=== PATIENT | male | born 1955 | race Caucasian/White ===

== ENCOUNTER 2017-09-05 06:27 | Day surgery (SDC) | payer BC ==
[2017-09-05] MEDS ORDERED: Dextrose 5%-Lactated Ringers 1,000 ML IV SCH (07:00)
[2017-09-05] MEDS ORDERED: fentaNYL 100 MCG/2 ML SDV ONE (07:11)
[2017-09-05] MEDS ORDERED: Midazolam 1 MG/ML 2 ML SDV ONE (07:11)
[2017-09-05] MEDS ORDERED: Propofol 200 MG/20 ML SDV ONE (07:11)
[2017-09-05] MEDS ORDERED: Glycopyrrolate 0.2 MG/ML 2 ML SYRINGE IVPUSH ONE (07:30)
[2017-09-05] MEDS ORDERED: Ondansetron 4 MG/2 ML SDV IVPUSH ONE (09:26)
[2017-09-05 09:56] VITALS: BP 109/75
--- NOTE | 2017-09-11 08:16 | OR ---
DATE OF PROCEDURE: 09/05/2017 PREOPERATIVE DIAGNOSIS: History of Wong's esophagus. POSTOPERATIVE DIAGNOSES: 1. History of Wong's esophagus. 2. Mild antral gastritis. PROCEDURES: Esophagogastroduodenoscopy with: 1. Antral biopsies for CLOtest. 2. Biopsies of esophagogastric junction for histologic evaluation. INDICATION FOR PROCEDURE: This is a 62-year-old presenting for followup of his Wong's esophagus. Presently, he is on omeprazole 20 mg a day, and he has had little in the way of ongoing reflux symptoms. The plan is to proceed with an upper GI endoscopy with biopsies as indicated. Potential risks including bleeding and perforation were discussed, and the patient wishes to proceed. DESCRIPTION OF PROCEDURE: The patient was taken to the operating room and placed in a left lateral decubitus position. IV sedation was administered, after which the upper GI endoscope was passed orally through the length of esophagus and into the stomach with retroflexion view of the fundus and thereafter through the pyloric channel and into the junction of the third and fourth portions of the duodenum. Findings included normal hypopharynx, larynx, upper esophageal sphincter, along with the esophageal body. As one passed into the area of the esophagogastric junction, the patient did have some upward extension of the gastroesophageal junction lying above the upper gastric folds. This was associated with minimal gross inflammation and no plaquing or other signs of neoplasia. There was no stricturing at the EG junction as well. Within the stomach proximally, there was a small amount of bile present. There were some patchy jose areas in the antrum without erosions or ulcers, and the visualized portion of the pyloric channel and duodenum were unremarkable. At this point, biopsies were taken from the antrum and sent for CLOtest for H. pylori. Multiple biopsies were then obtained from esophagogastric junction and sent for histologic evaluation. No bleeding from biopsy sites was seen, and the procedure was then concluded. The patient will encouraged to continue the present omeprazole management. Assuming there is not a progression toward dysplasia within the Wong's esophagus, the next upper endoscopy should be in 2 years. Lamin Fernandes MD /[id number]
== END 2017-09-05 11:05 | disposition home or self-care (01) ==
LOC: JP.SDS 06:27
PROVIDERS: ATTEND Surgery
DX: K29.50 Unspecified chronic gastritis without bleeding (principal); K21.0 Gastro-esophageal reflux disease with esophagitis; I10 Essential (primary) hypertension; N40.0 Benign prostatic hyperplasia without lower urinary tract symptoms; R73.03 Prediabetes
CPT/HCPCS: 43239; 87081; 88305; J2250; J2405; J2704; J3010; J7042

== ENCOUNTER 2020-10-04 17:28 | Inpatient (IN) | payer BC ==
[2020-10-04] MEDS ORDERED: Sodium Chloride 0.9% 10 ML Syringe FLUSH PRN (17:32)
--- NOTE | 2020-10-04 17:39 | PCM.HP.2 ---
H&P History of Present Illness - General Date of Service: 10/04/20 Admit Problem/Dx: Admission Diagnosis/Problem Admission Diagnosis/Problem Small bowel obstruction Source of Information: Patient, Family, Provider, RN Notes Reviewed History Limitations: Reports: No Limitations - History of Present Illness Initial Comments - Free Text/Narative: Mr. Cotton is a 65-year-old gentleman who was admitted as a direct admission from the clinic with abdominal pain, nausea, and vomiting, secondary to small bowel obstruction. Over the last 2 days is developed progressive symptoms of abdominal pain, with nausea and vomiting. He has not been passing gas or had a bowel movements since onset of symptoms. He was seen and evaluated in the walk- in clinic today. Labs were essentially unremarkable, abdominal x-ray showed bowel gas pattern consistent with bowel obstruction. CT scan of the abdomen and pelvis was obtained and again confirmed small bowel obstruction with transition point in the pelvis. He has had previous abdominal surgery including cholecystectomy. He has never previously experienced small bowel obstruction and otherwise has been feeling well. - Related Data Allergies/Adverse Reactions: Allergies Allergy/AdvReac Type Severity Reaction Status Date / Time No Known Allergies Allergy Verified 04/18/15 09:27 Home Medications: Home Meds Aspirin 325 mg PO DAILY 04/21/14 [History] Celecoxib [CeleBREX] 100 mg PO BID 04/21/14 [History] Fluticasone Propionate [Flonase] 1 spray NASBOTH DAILY 04/21/14 [History] Sildenafil [Viagra] 50 mg PO ASDIRECTED PRN 04/21/14 [History] Tamsulosin [Flomax] 0.8 mg PO DAILY 04/21/14 [History] amLODIPine [Norvasc] 10 mg PO DAILY 04/21/14 [History] atorvaSTATin [Lipitor] 40 mg PO BEDTIME 04/21/14 [History] hydroCHLOROthiazide [Microzide] 12.5 mg PO DAILY 04/21/14 [History] Cholecalciferol (Vitamin D3) [Vitamin D] 2,000 unit PO DAILY 04/14/15 [History] Omeprazole [Prilosec] 40 mg PO DAILY 04/14/15 [History] atenoloL [Atenolol] 50 mg PO BID 10/04/20 [History] Past Medical History Other HEENT History: right eye injury with floaters Gastrointestinal History: Reports: GERD Genitourinary History: Reports: BPH - Infectious Disease History Infectious Disease History: Reports: Chicken Pox Social & Family History - Caffeine Use Caffeine Use: Reports: Coffee H&P Review of Systems - Review of Systems: Review Of Systems: See Below General: Reports: Malaise, Weakness, Decreased Appetite. Denies: Fever, Chills HEENT: Reports: No Symptoms Pulmonary: Reports: No Symptoms Cardiovascular: Reports: No Symptoms Gastrointestinal: Reports: Abdominal Pain, Distension, Nausea, Vomiting. Denies: Difficulty Swallowing, Hematemesis, Hematochezia, Melena Genitourinary: Reports: No Symptoms Musculoskeletal: Reports: No Symptoms Skin: Reports: No Symptoms Psychiatric: Reports: No Symptoms Neurological: Reports: No Symptoms Hematologic/Lymphatic: Reports: No Symptoms Immunologic: Reports: No Symptoms Exam - Exam Exam: See Below - Exam Quality Assessment: DVT Prophylaxis General: Alert, Oriented, Cooperative, Moderate Distress HEENT: Conjunctiva Clear, Hearing Intact, Mucosa Moist & [place], Normal Nasal Septum, Posterior Pharynx Clear, Pupils Equal Neck: Supple, Trachea Midline, +2 Carotid Pulse wo Bruit Lungs: Clear to Auscultation, Normal Respiratory Effort Cardiovascular: Regular Rate, Regular Rhythm, Normal S1, Normal S2 GI/Abdominal Exam: Soft, No Organomegaly, Distended, Tender. No: Guarding, Rigid, Rebound Back Exam: Normal Inspection, Full Range of Motion Extremities: Non-Tender, No Pedal Edema Skin: Warm, Dry, Intact Neurological: Cranial Nerves Intact, Strength Equal Bilateral, Normal Speech, Normal Tone, Sensation Intact. No: Focal Deficit Neuro Extensive - Mental Status: Alert, Oriented x3, Normal Mood/Affect, Normal Cognition, Memory Intact *Q Meaningful Use (ADM) - VTE Risk Assess *Q Each Risk Factor Represents 1 Point: Obesity ( BMI > 25 kg/m2) Total Score 1 Point Risk Factors: 1 Each Risk Factor Represents 2 Points: Age 60 - 74 Years Total Score 2 Point Risk Factors: 2 Each Risk Factor Represents 3 Points: None Total Score 3 Point Risk Factors: 0 Each Risk Factor Represents 5 Points: None Total Score 5 Point Risk Factors: 0 Venous Thromboembolism Risk Factor Score *Q: 3 Problem List Initiated/Reviewed/Updated: Yes Orders Last 24hrs: Active Orders 24 hr Category Date Time Status Patient Status [ADT] Routine ADT 10/04/20 17:32 Ordered Ambulate [RC] QID Care 10/04/20 17:32 Ordered Antiembolic Devices [RC] .Routine Care 10/04/20 17:32 Ordered Gastrointestinal Tube Mgmt [RC] ASDIRECTED Care 10/04/20 17:37 Ordered Height and Weight [RC] DAILY Care 10/04/20 17:32 Ordered Intake and Output [RC] QSHIFT Care 10/04/20 17:32 Ordered Notify Provider Consults [RC] ASDIRECTED Care 10/04/20 17:34 Ordered Notify Provider Vital Signs [RC] ASDIRECTED Care 10/04/20 17:32 Ordered Oxygen Therapy [RC] PRN Care 10/04/20 17:32 Ordered Peripheral IV Care [RC] . DIRECTED Care 10/04/20 17:34 Ordered Up ad Precious [RC] ASDIRECTED Care 10/04/20 17:32 Ordered Up to Chair [RC] QID Care 10/04/20 17:32 Ordered VTE/DVT Education [RC] Per Unit Routine Care 10/04/20 17:32 Ordered Vital Signs [RC] Q4H Care 10/04/20 17:32 Ordered Consult to Physician [CONS] Routine Cons 10/04/20 17:32 Ordered Nothing per Oral Now Diet [DIET] Diet 10/04/20 Dinner Ordered Abdomen 1V Upright [CR] Stat Exams 10/04/20 17:37 Ordered Abdomen 2V AP Upright Decub [CR] Timed Exams 10/05/20 05:00 Ordered Chest 1V Frontal [CR] Stat Exams 10/04/20 17:37 Ordered CBC WITH AUTO DIFF [HEME] AM Lab 10/05/20 05:11 Ordered COMPREHENSIVE METABOLIC PN,CMP [CHEM] AM Lab 10/05/20 05:11 Ordered MAGNESIUM [CHEM] AM Lab 10/05/20 05:11 Ordered HYDROmorphone [Dilaudid] Med 10/04/20 17:37 Ordered 0.5 mg IVPUSH Q3H PRN Ondansetron [Zofran] Med 10/04/20 17:32 Ordered 4 mg IV Q4H PRN Pantoprazole [ProTONIX IV] Med 10/04/20 17:45 Ordered 40 mg IVPUSH Q24H Sodium Chloride 0.9% @ 125 MLS/HR (1000ml) Med 10/04/20 17:45 Ordered Sodium Chloride 0.9% [Normal Saline] 1,000 ml IV ASDIRECTED Sodium Chloride 0.9% [Saline Flush] Med 10/04/20 17:32 Ordered 10 ml FLUSH ASDIRECTED PRN Nasogastric Orogastric Tube Insertion [OM.PC] Routine Oth 10/04/20 17:37 Ordered Peripheral IV Insertion Adult [OM.PC] Routine Oth 10/04/20 17:32 Ordered Sequential Compression Device [OM.PC] Per Unit Routine Oth 10/04/20 17:33 Ordered Resuscitation Status Routine Resus Stat 10/04/20 17:32 Ordered Assessment/Plan Comment:: ASSESSMENT AND PLAN SMALL BOWEL OBSTRUCTION-symptoms of pain with nausea and vomiting over the last 2 days. During that period of time has not been passing gas or had a bowel movement. CT scan confirms small bowel obstruction with transition point in the pelvis. -Follow-up abdominal flatplate and upright x-ray in a.m. -N.p.o. -Place NG tube to low intermittent suction -IV fluids for hydration -Medication for pain and nausea as needed -Consult Dr. Fernandes for surgical opinion in a.m. HYPERTENSION -Continue metoprolol if possible -Hold amlodipine, lisinopril, and hydrochlorothiazide MAINTENANCE ISSUES -DVT prophylaxis; SCUDs -GI prophylaxis; Protonix 40 mg IV daily -Correa catheter; not indicated -Nutrition; n.p.o. -Nicotine dependence; not required CODE STATUS-FULL CODE ADMISSION STATUS-patient will be admitted to inpatient status, expect at least a 2 night hospital stay for evaluation and management of problems as outlined above. At the time of this admission I do not reasonably expected evaluation and management of this problem will require more than a 96 hour hospital stay. DISPOSITION-anticipate discharge to home after the hospital stay.
[2020-10-04] MEDS ORDERED: Sodium Chloride 0.9% 1,000 ML IV SCH (17:45)
[2020-10-04] MEDS: Pantoprazole 40 MG Vial IVPUSH SCH (18:46)
[2020-10-04] MEDS: HYDROmorphone 0.5 MG/0.5 ML Syringe IVPUSH PRN (20:13)
[2020-10-04] MEDS: Ondansetron 4 MG/2 ML SDV IV PRN (20:23)
[2020-10-04] MEDS: atorvaSTATin 20 MG Tab PO SCH (22:09)
[2020-10-05] MEDS: HYDROmorphone 0.5 MG/0.5 ML Syringe IVPUSH PRN ×2 (03:00→20:06)
--- NOTE | 2020-10-05 08:09 | PCM.CONS ---
H&P History of Present Illness - General Date of Service: 10/05/20 Admit Problem/Dx: Admission Diagnosis/Problem Admission Diagnosis/Problem Small bowel obstruction Source of Information: Patient History Limitations: Reports: No Limitations - History of Present Illness Onset of Symptoms: Reports: Gradual Duration of Symptoms: Reports: Day(s): Location: Reports: Abdomen Quality: Reports: Ache, Pressure, Stabbing, Throbbing Improves with: Reports: None Worsens with: Reports: Eating Context: Reports: Sick Contact Associated Symptoms: Reports: Loss of Appetite, Malaise, Nausea/Vomiting - Related Data Allergies/Adverse Reactions: Allergies Allergy/AdvReac Type Severity Reaction Status Date / Time No Known Allergies Allergy Verified 04/18/15 09:27 Home Medications: Home Meds Aspirin 325 mg PO DAILY 04/21/14 [History] Celecoxib [CeleBREX] 100 mg PO BID 04/21/14 [History] Fluticasone Propionate [Flonase] 1 spray NASBOTH DAILY 04/21/14 [History] Sildenafil [Viagra] 50 mg PO ASDIRECTED PRN 04/21/14 [History] Tamsulosin [Flomax] 0.8 mg PO DAILY 04/21/14 [History] amLODIPine [Norvasc] 10 mg PO DAILY 04/21/14 [History] atorvaSTATin [Lipitor] 40 mg PO BEDTIME 04/21/14 [History] hydroCHLOROthiazide [Microzide] 12.5 mg PO DAILY 04/21/14 [History] Cholecalciferol (Vitamin D3) [Vitamin D] 2,000 unit PO DAILY 04/14/15 [History] Omeprazole [Prilosec] 40 mg PO DAILY 04/14/15 [History] atenoloL [Atenolol] 50 mg PO BID 10/04/20 [History] Past Medical History Other HEENT History: right eye injury with floaters Cardiovascular History: Reports: Hypertension Gastrointestinal History: Reports: Bowel Obstruction, GERD Genitourinary History: Reports: BPH Musculoskeletal History: Reports: Fracture - Infectious Disease History Infectious Disease History: Reports: Chicken Pox - Past Surgical History HEENT Surgical History: Reports: None Cardiovascular Surgical History: Reports: None GI Surgical History: Reports: Cholecystectomy Male Surgical History: Reports: None Musculoskeletal Surgical History: Reports: ORIF Other Musculoskeletal Surgeries/Procedures:: surgery on ankles Social & Family History - Tobacco Use Tobacco Use Status *Q: Never Tobacco User Used Tobacco, but Quit: No Second Hand Smoke Exposure: No - Caffeine Use Caffeine Use: Reports: Coffee - Alcohol Use Days Per Week of Alcohol Use: 7 Number of Drinks Per Day: 2 Total Drinks Per Week: 14 - Recreational Drug Use Recreational Drug Use: No H&P Review of Systems - Review of Systems: Review Of Systems: See Below General: Reports: Weakness, Fatigue HEENT: Reports: No Symptoms Pulmonary: Reports: No Symptoms Cardiovascular: Reports: No Symptoms Gastrointestinal: Reports: Abdominal Pain, Decreased Appetite, Distension, Nausea, Other (History of Colon Polyps and Gloria's Esophagus. ) Genitourinary: Reports: No Symptoms Musculoskeletal: Reports: No Symptoms Skin: Reports: No Symptoms Psychiatric: Reports: No Symptoms Neurological: Reports: No Symptoms Hematologic/Lymphatic: Reports: No Symptoms Immunologic: Reports: No Symptoms Exam - Exam Exam: See Below - Vital Signs Vital Signs: Last Vital Signs Temp 98 F 10/05/20 07:00 Pulse 96 10/05/20 07:00 Resp 16 10/05/20 07:00 BP 133/77 10/05/20 07:00 Pulse Ox 94 L 10/05/20 07:00 Weight: 167 lb 8.821 oz - Exam Quality Assessment: DVT Prophylaxis General: Alert, Oriented, Moderate Distress HEENT: PERRLA Neck: Supple, Trachea Midline Lungs: Clear to Auscultation, Normal Respiratory Effort Cardiovascular: Regular Rate, Regular Rhythm GI/Abdominal Exam: Soft, Tender (in bilateral lower quadrants. NG is in place ) (Male) Exam: Deferred Rectal (Males) Exam: Deferred Back Exam: Normal Inspection, Full Range of Motion Extremities: Normal Inspection, Normal Range of Motion Skin: Warm, Dry, Intact Neurological: Cranial Nerves Intact, Reflexes Equal Bilateral Neuro Extensive - Mental Status: Alert, Oriented x3, Normal Mood/Affect, Normal Cognition, Memory Intact Neuro Extensive - Motor, Sensory, Reflexes: CN II-XII Intact, Normal Gait Psychiatric: Alert, Normal Affect, Normal Mood - Patient Data Lab Results Last 24 hrs: Laboratory Results - last 24 hr 10/05/20 10/05/20 Range/Units 05:48 05:48 WBC 5.5 (4.5-11.0) K/uL RBC 4.52 (4.30-5.90) M/uL Hgb 14.0 (12.0-15.0) g/dL Hct 43.6 (40.0-54.0) % MCV 97 (80-98) fL MCH 31 (27-31) pg MCHC 32 (32-36) % Plt Count 198 (150-400) K/uL Neut % (Auto) 52 (36-66) % Lymph % (Auto) 20 L (24-44) % [place] % (Auto) 27 H (2-6) % Eos % (Auto) 1 L (2-4) % Baso % (Auto) 0 (0-1) % Sodium 143 (140-148) mmol/L Potassium 3.3 L (3.6-5.2) mmol/L Chloride 104 (100-108) mmol/L Carbon Dioxide 24 (21-32) mmol/L Anion Gap 18.3 H (5.0-14.0) mmol/L BUN 12 (7-18) mg/dL Creatinine 0.8 (0.8-1.3) mg/dL Est Cr Clr Drug Dosing 85.29 mL/min Estimated GFR (MDRD) > 60 (>60) Glucose 90 (74-106) mg/dL Calcium 8.5 (8.5-10.1) mg/dL Magnesium 2.0 (1.8-2.4) mg/dL Total Bilirubin 0.6 (0.2-1.0) mg/dL AST 16 (15-37) U/L ALT 49 (12-78) U/L Alkaline Phosphatase 64 (46-116) U/L Total Protein 6.3 L (6.4-8.2) g/dL Albumin 3.2 L (3.4-5.0) g/dL Globulin 3.1 (2.3-3.5) g/dL Albumin/Globulin Ratio 1.0 L (1.2-2.2) Result Diagrams: 10/05/20 05:48 10/05/20 05:48 Sepsis Event Note - Evaluation Sepsis Screening Result: No Definite Risk - Focused Exam Vital Signs: Vital Signs Temp Pulse Resp BP Pulse Ox 10/05/20 07:00 98 F 96 16 133/77 94 L 10/05/20 03:00 99.4 F 73 16 149/76 H 94 L 10/04/20 22:29 99.3 F 89 16 140/77 94 L Consult PN Assessment/Plan Procedures: Procedures CARDIOVASCULAR STRESS TEST (04/22/14) CULTURE SCREEN ONLY (09/05/17) DIAGNOSTIC COLONOSCOPY (04/18/15) EGD BIOPSY SINGLE/MULTIPLE (09/05/17) TISSUE EXAM BY PATHOLOGIST (09/05/17) (1) Small bowel obstruction SNOMED Code(s): 257647018 Code(s): K56.609 - UNSP INTESTNL OBST, UNSP TO PARTIAL VERSUS COMPLETE OBST Current Visit: Yes (2) Diverticulitis SNOMED Code(s): 859723337 Code(s): K57.92 - DVTRCLI OF INTEST, PART UNSP, W/O PERF OR ABSCESS W/O BLEED Current Visit: Yes (3) Barretts esophagus SNOMED Code(s): 962883488 Code(s): K22.70 - GLORIA'S ESOPHAGUS WITHOUT DYSPLASIA Current Visit: Yes Problem List Initiated/Reviewed/Updated: Yes My Orders Last 24 Hours: My Active Orders Plan: 10/05/20 09:00 amLODIPine [Norvasc] 10 mg PO DAILY atenoloL [Tenormin] 50 mg PO BID hydroCHLOROthiazide 12.5 mg PO DAILY 10/06/20 04:00 Abdomen 2V AP Flat Upright [CR] Timed Will evaluate prn or in AM. Evan is due for an EGD to evaluate Gloria's Esophagus and Colonoscopy is due in 4 years or prn Thank You for this Consultation. Monika Clark 10/05/2020
[2020-10-05] MEDS ORDERED: Potassium Chloride Riders 40 MEQ in Premix Bag 1 BAG IV ONE (08:19)
[2020-10-05] MEDS: Hydrochlorothiazide 12.5 MG Cap PO SCH (08:36)
[2020-10-05] MEDS: Atenolol 25 MG Tab PO SCH ×2 (08:37→20:07)
[2020-10-05] MEDS: amLODIPine 5 MG Tab PO SCH (08:37)
[2020-10-05] MEDS: Tamsulosin 0.4 MG Cap.ER PO SCH (08:37)
[2020-10-05] MEDS: Fluticasone Propionate Nasal Spray 16 GM Bottle NASBOTH SCH (08:38)
--- NOTE | 2020-10-05 09:01 | CR ---
CHEST: Portable 10/04/2020 at 7:03 PM CLINICAL HISTORY:NG tube placement COMPARISON:None FINDINGS: Heart size and pulmonary vascular are normal. There is less than optimal inspiration exaggerating the lung markings. There is an NG tube in the fundus of the stomach. The sidehole is just beyond the GE junction. IMPRESSION: Limited study with poor inspiration NG tube is in the fundus of the stomach and should be advanced Abdomen 2V AP Upright Decub CLINICAL HISTORY: SBO FINDINGS: No free air is seen. There is an NG tube in the fundus of the stomach. There is moderate diffuse distention of small bowel with scattered air-fluid levels. There is gas throughout the colon. Previously administered oral contrast is also seen in the colon. IMPRESSION: Small bowel distention with passage of contrast through the small bowel suggests partial obstruction
--- NOTE | 2020-10-05 10:36 | PCM.PN ---
- General Info Date of Service: 10/05/20 Subjective Update: Mr. Cotton has been stable since admission. Abdominal pain and nausea improved with placement of NG tube. He reports that he has been passing a small amount of gas and did have a small bowel movement this morning. He was seen and evaluated by Dr. Fernandes, current plan is to manage conservatively over the next 24 hours. If there is resolution of obstruction by tomorrow continue conservative management, if he has ongoing obstruction plan to proceed with surgical intervention. Functional Status: Reports: Ambulating, Urinating - Review of Systems General: Reports: No Symptoms Pulmonary: Reports: No Symptoms Cardiovascular: Reports: No Symptoms Gastrointestinal: Reports: No Symptoms - Patient Data Vitals - Most Recent: Last Vital Signs Temp 98 F 10/05/20 07:00 Pulse 96 10/05/20 08:37 Resp 16 10/05/20 07:00 BP 133/77 10/05/20 08:37 Pulse Ox 94 L 10/05/20 07:00 Weight - Most Recent: 167 lb 8.821 oz I&O - Last 24 Hours: Intake & Output 10/04/20 10/05/20 10/05/20 22:59 06:59 14:59 Output Total 350 Balance -350 Lab Results Last 24 Hours: Laboratory Results - last 24 hr 10/05/20 10/05/20 Range/Units 05:48 05:48 WBC 5.5 (4.5-11.0) K/uL RBC 4.52 (4.30-5.90) M/uL Hgb 14.0 (12.0-15.0) g/dL Hct 43.6 (40.0-54.0) % MCV 97 (80-98) fL MCH 31 (27-31) pg MCHC 32 (32-36) % Plt Count 198 (150-400) K/uL Neut % (Auto) 52 (36-66) % Lymph % (Auto) 20 L (24-44) % [place] % (Auto) 27 H (2-6) % Eos % (Auto) 1 L (2-4) % Baso % (Auto) 0 (0-1) % Sodium 143 (140-148) mmol/L Potassium 3.3 L (3.6-5.2) mmol/L Chloride 104 (100-108) mmol/L Carbon Dioxide 24 (21-32) mmol/L Anion Gap 18.3 H (5.0-14.0) mmol/L BUN 12 (7-18) mg/dL Creatinine 0.8 (0.8-1.3) mg/dL Est Cr Clr Drug Dosing 85.29 mL/min Estimated GFR (MDRD) > 60 (>60) Glucose 90 (74-106) mg/dL Calcium 8.5 (8.5-10.1) mg/dL Magnesium 2.0 (1.8-2.4) mg/dL Total Bilirubin 0.6 (0.2-1.0) mg/dL AST 16 (15-37) U/L ALT 49 (12-78) U/L Alkaline Phosphatase 64 (46-116) U/L Total Protein 6.3 L (6.4-8.2) g/dL Albumin 3.2 L (3.4-5.0) g/dL Globulin 3.1 (2.3-3.5) g/dL Albumin/Globulin Ratio 1.0 L (1.2-2.2) Med Orders - Current: Current Medications Amlodipine Besylate (Amlodipine 5 Mg Tab) 10 mg PO DAILY [facility] Last Admin: 10/05/20 08:37 Dose: 10 mg Documented by: Atenolol (Atenolol 25 Mg Tab) 50 mg PO BID [facility] Last Admin: 10/05/20 08:37 Dose: 50 mg Documented by: Atorvastatin Calcium (Atorvastatin 20 Mg Tab) 40 mg PO BEDTIME [facility] Last Admin: 10/04/20 22:09 Dose: Not Given Documented by: Fluticasone Propionate (Fluticasone Propionate Nasal [place] 16 Gm Bottle) 0 gm NASBOTH DAILY [facility] Last Admin: 10/05/20 08:38 Dose: 1 spr Documented by: Hydrochlorothiazide (Hydrochlorothiazide 12.5 Mg Cap) 12.5 mg PO DAILY [facility] Last Admin: 10/05/20 08:36 Dose: 12.5 mg Documented by: Hydromorphone HCl (Hydromorphone 0.5 Mg/0.5 Ml Syringe) 0.5 mg IVPUSH Q3H PRN PRN Reason: Pain Last Admin: 10/05/20 03:00 Dose: 0.5 mg Documented by: Potassium Chloride 20 meq/Lidocaine HCl 2 ml/ Sodium Chloride 112 mls @ 56 mls/hr IV Q2H [facility] Stop: 10/05/20 13:59 Sodium Chloride (Normal Saline) 1,000 mls @ 75 mls/hr IV ASDIRECTED [facility] Ondansetron HCl (Ondansetron 4 Mg/2 Ml Sdv) 4 mg IV Q4H PRN PRN Reason: Nausea/Vomiting Last Admin: 10/04/20 20:23 Dose: 4 mg Documented by: Pantoprazole Sodium (Pantoprazole 40 Mg Vial) 40 mg IVPUSH Q24H [facility] Last Admin: 10/04/20 18:46 Dose: 40 mg Documented by: Sodium Chloride (Sodium Chloride 0.9% 10 Ml Syringe) 10 ml FLUSH ASDIRECTED PRN PRN Reason: Keep Vein Open Tamsulosin HCl (Tamsulosin 0.4 Mg Cap.Er) 0.8 mg PO DAILY [facility] Last Admin: 10/05/20 08:37 Dose: 0.8 mg Documented by: Discontinued Medications Sodium Chloride (Normal Saline) 1,000 mls @ 125 mls/hr IV ASDIRECTED [facility] Last Admin: 10/04/20 18:46 Dose: 125 mls/hr Documented by: - Exam Quality Assessment: DVT Prophylaxis General: Alert, Oriented, Cooperative, Mild Distress Lungs: Clear to Auscultation, Normal Respiratory Effort Cardiovascular: Regular Rate, Regular Rhythm, No Murmurs GI/Abdominal Exam: Soft, No Organomegaly, Distended, Tender. No: Guarding, Rigid, Rebound Extremities: Non-Tender, No Pedal Edema - Patient Data Lab Results Last 24 hrs: Laboratory Results - last 24 hr 10/05/20 10/05/20 Range/Units 05:48 05:48 WBC 5.5 (4.5-11.0) K/uL RBC 4.52 (4.30-5.90) M/uL Hgb 14.0 (12.0-15.0) g/dL Hct 43.6 (40.0-54.0) % MCV 97 (80-98) fL MCH 31 (27-31) pg MCHC 32 (32-36) % Plt Count 198 (150-400) K/uL Neut % (Auto) 52 (36-66) % Lymph % (Auto) 20 L (24-44) % [place] % (Auto) 27 H (2-6) % Eos % (Auto) 1 L (2-4) % Baso % (Auto) 0 (0-1) % Sodium 143 (140-148) mmol/L Potassium 3.3 L (3.6-5.2) mmol/L Chloride 104 (100-108) mmol/L Carbon Dioxide 24 (21-32) mmol/L Anion Gap 18.3 H (5.0-14.0) mmol/L BUN 12 (7-18) mg/dL Creatinine 0.8 (0.8-1.3) mg/dL Est Cr Clr Drug Dosing 85.29 mL/min Estimated GFR (MDRD) > 60 (>60) Glucose 90 (74-106) mg/dL Calcium 8.5 (8.5-10.1) mg/dL Magnesium 2.0 (1.8-2.4) mg/dL Total Bilirubin 0.6 (0.2-1.0) mg/dL AST 16 (15-37) U/L ALT 49 (12-78) U/L Alkaline Phosphatase 64 (46-116) U/L Total Protein 6.3 L (6.4-8.2) g/dL Albumin 3.2 L (3.4-5.0) g/dL Globulin 3.1 (2.3-3.5) g/dL Albumin/Globulin Ratio 1.0 L (1.2-2.2) Result Diagrams: 10/05/20 05:48 10/05/20 05:48 Sepsis Event Note - Evaluation Sepsis Screening Result: No Definite Risk - Focused Exam Vital Signs: Vital Signs Temp Pulse Pulse Resp BP BP Pulse Ox 10/05/20 08:37 96 133/77 10/05/20 07:00 98 F 96 16 133/77 94 L 10/05/20 03:00 99.4 F 73 16 149/76 H 94 L - Problem List Review Problem List Initiated/Reviewed/Updated: Yes - My Orders Last 24 Hours: My Active Orders 10/04/20 Dinner Nothing per Oral Now Diet [DIET] 10/04/20 17:32 Patient Status [ADT] Routine Ambulate [RC] QID Antiembolic Devices [RC] .Routine Height and Weight [RC] 0500 Notify Provider Vital Signs [RC] ASDIRECTED Oxygen Therapy [RC] .PRN Up ad Precious [RC] ASDIRECTED Up to Chair [RC] QID VTE/DVT Education [RC] Per Unit Routine Vital Signs [RC] Q4H Consult to Physician [CONS] Routine Ondansetron [Zofran] 4 mg IV Q4H PRN Sodium Chloride 0.9% [Saline Flush] 10 ml FLUSH ASDIRECTED PRN Peripheral IV Insertion Adult [OM.PC] Routine Resuscitation Status Routine 10/04/20 17:33 Sequential Compression Device [OM.PC] Per Unit Routine 10/04/20 17:34 Notify Provider Consults [RC] ASDIRECTED 10/04/20 17:37 Gastrointestinal Tube Mgmt [RC] Q12H HYDROmorphone [Dilaudid] 0.5 mg IVPUSH Q3H PRN Nasogastric Orogastric Tube Insertion [OM.PC] Routine 10/04/20 18:00 Pantoprazole [ProTONIX IV] 40 mg IVPUSH Q24H 10/04/20 21:00 atorvaSTATin [Lipitor] 40 mg PO BEDTIME 10/05/20 09:00 Fluticasone Propionate [Flonase] 0 gm NASBOTH DAILY Tamsulosin [Flomax] 0.8 mg PO DAILY 10/05/20 10:00 Potassium Chloride 20 meq Lidocaine 1% [Xylocaine 1%] 2 ml Sodium Chloride 0.9% [Normal Saline] 100 ml IV Q2H 10/05/20 10:45 Sodium Chloride 0.9% @ 75 MLS/HR(1000ml) Sodium Chloride 0.9% [Normal Saline] 1,000 ml IV ASDIRECTED 10/06/20 05:00 BASIC METABOLIC PANEL,BMP [CHEM] Timed - Plan Plan:: ASSESSMENT AND PLAN SMALL BOWEL OBSTRUCTION-symptomatically improved with resolution of nausea and abdominal pain after placement of NG tube last night. He is passing some gas and did have a small bowel movement this morning. -Follow-up abdominal flatplate and upright x-ray in a.m. -N.p.o. -NG tube to low intermittent suction -IV fluids for hydration -Medication for pain and nausea as needed -Surgical follow-up per Dr. Fernandes HYPERTENSION -Resume antihypertensive medications MAINTENANCE ISSUES -DVT prophylaxis; SCUDs -GI prophylaxis; Protonix 40 mg IV daily -Correa catheter; not indicated -Nutrition; n.p.o. -Nicotine dependence; not required CODE STATUS-FULL CODE ADMISSION STATUS-patient will be admitted to inpatient status, expect at least a 2 night hospital stay for evaluation and management of problems as outlined above. At the time of this admission I do not reasonably expected evaluation and management of this problem will require more than a 96 hour hospital stay. DISPOSITION-anticipate discharge to home after the hospital stay.
[2020-10-05] MEDS: Potassium Chloride 20 MEQ, Lidocaine 1% 2 ML in Sodium Chloride 0.9% 100 ML IV SCH ×2 (10:48→13:14)
[2020-10-05] MEDS: Sodium Chloride 0.9% 1,000 ML IV SCH ×2 (10:48→23:25)
[2020-10-05] MEDS: Pantoprazole 40 MG Vial IVPUSH SCH (17:46)
[2020-10-05] MEDS: Ondansetron 4 MG/2 ML SDV IV PRN (20:06)
[2020-10-05] MEDS: atorvaSTATin 20 MG Tab PO SCH (20:07)
[2020-10-06] MEDS: Atenolol 25 MG Tab PO SCH ×2 (08:04→20:22)
[2020-10-06] MEDS: Hydrochlorothiazide 12.5 MG Cap PO SCH (08:04)
[2020-10-06] MEDS: Fluticasone Propionate Nasal Spray 16 GM Bottle NASBOTH SCH (08:04)
[2020-10-06] MEDS: Tamsulosin 0.4 MG Cap.ER PO SCH (08:05)
[2020-10-06] MEDS: amLODIPine 5 MG Tab PO SCH (08:05)
--- NOTE | 2020-10-06 08:34 | PN ---
DATE OF SERVICE: 10/06/2020 SUBJECTIVE: Evan's abdominal x-ray did look better today. He started to have stools. Oral intake, he is still n.p.o. with ice chips. Output was 3444. NG output was 750. Up ambulating. Pain is controlled. All 12 systems were reviewed and negative for any pertinent positives and negatives. OBJECTIVE: GENERAL: Evan Cotton is a pleasant 65-year-old male. He is alert and oriented. VITAL SIGNS: TPR is 97.6, 84, 18, blood pressure 156/78. HEENT: Negative. NECK: Supple. HEART: Regular rate and rhythm. LUNGS: Clear. ABDOMEN: Soft and nontender. EXTREMITIES: Without peripheral edema. NEURO: Intact. PSYCHIATRIC: Mood and affect appropriate. ASSESSMENT: Small bowel obstruction. PLAN: Continue with NG for 24 hours. Check abdominal flat and upright x-ray in a.m. If he continues to progress, NG will be removed tomorrow, and he will be started on clear liquids. We will evaluate p.r.n. or in a.m. Monika Squires PA-C /[id number]
--- NOTE | 2020-10-06 09:32 | CR ---
Abdomen 2V AP Flat Upright CLINICAL HISTORY: Small bowel obstruction FINDINGS: There is a significant decrease in small bowel distention. There is a persistently dilated loop of small bowel in the left upper quadrant with an air-fluid level. There is gas and some oral contrast seen throughout the colon. NG tube remains in place in the fundus of the stomach just beyond the GE junction IMPRESSION: Interval decrease in small bowel distention with 1 dilated loop of small bowel in the left upper quadrant.
--- NOTE | 2020-10-06 10:30 | PCM.PN ---
- General Info Date of Service: 10/06/20 Subjective Update: Mr. Cotton has been stable over the last 24 hours, passing more gas and small watery bowel movements. NG output has decreased as well. Currently denies significant abdominal pain or nausea. Functional Status: Reports: Ambulating, Urinating - Review of Systems General: Reports: No Symptoms Pulmonary: Reports: No Symptoms Cardiovascular: Reports: No Symptoms Gastrointestinal: Reports: No Symptoms - Patient Data Vitals - Most Recent: Last Vital Signs Temp 97.6 F 10/06/20 02:42 Pulse 84 10/06/20 08:04 Resp 18 10/06/20 07:00 BP 156/78 H 10/06/20 08:05 Pulse Ox 96 10/06/20 07:00 Weight - Most Recent: 164 lb 14.4 oz I&O - Last 24 Hours: Intake & Output 10/05/20 10/06/20 10/06/20 22:59 06:59 14:59 Intake Total 3344 Output Total 600 150 Balance -600 3194 Lab Results Last 24 Hours: Laboratory Results - last 24 hr 10/06/20 Range/Units 05:53 Sodium 145 (140-148) mmol/L Potassium 3.9 (3.6-5.2) mmol/L Chloride 104 (100-108) mmol/L Carbon Dioxide 24 (21-32) mmol/L Anion Gap 16.6 H (5.0-14.0) mmol/L BUN 11 (7-18) mg/dL Creatinine 0.7 L (0.8-1.3) mg/dL Est Cr Clr Drug Dosing 97.97 mL/min Estimated GFR (MDRD) > 60 (>60) Glucose 82 (74-106) mg/dL Calcium 8.5 (8.5-10.1) mg/dL Med Orders - Current: Current Medications Amlodipine Besylate (Amlodipine 5 Mg Tab) 10 mg PO DAILY [facility] [place] Last Admin: 10/06/20 08:05 Dose: 10 mg Documented by: Atenolol (Atenolol 25 Mg Tab) 50 mg PO BID [facility] Last Admin: 10/06/20 08:04 Dose: 50 mg Documented by: Atorvastatin Calcium (Atorvastatin 20 Mg Tab) 40 mg PO BEDTIME [facility] Last Admin: 10/05/20 20:07 Dose: 40 mg Documented by: Fluticasone Propionate (Fluticasone Propionate Nasal [place] 16 Gm Bottle) 0 gm NASBOTH DAILY [facility] Last Admin: 10/06/20 08:04 Dose: 1 spr Documented by: Hydrochlorothiazide (Hydrochlorothiazide 12.5 Mg Cap) 12.5 mg PO DAILY [facility] Last Admin: 10/06/20 08:04 Dose: 12.5 mg Documented by: Hydromorphone HCl (Hydromorphone 0.5 Mg/0.5 Ml Syringe) 0.5 mg IVPUSH Q3H PRN PRN Reason: Pain Last Admin: 10/05/20 20:06 Dose: 0.5 mg Documented by: Sodium Chloride (Normal Saline) 1,000 mls @ 75 mls/hr IV ASDIRECTED [facility] [place] Last Admin: 10/05/20 23:25 Dose: 75 mls/hr Documented by: Ondansetron HCl (Ondansetron 4 Mg/2 Ml Sdv) 4 mg IV Q4H PRN PRN Reason: Nausea/Vomiting Last Admin: 10/05/20 20:06 Dose: 4 mg Documented by: Pantoprazole Sodium (Pantoprazole 40 Mg Vial) 40 mg IVPUSH Q24H [facility] Last Admin: 10/05/20 17:46 Dose: 40 mg Documented by: Sodium Chloride (Sodium Chloride 0.9% 10 Ml Syringe) 10 ml FLUSH ASDIRECTED PRN PRN Reason: Keep Vein Open Tamsulosin HCl (Tamsulosin 0.4 Mg Cap.Er) 0.8 mg PO DAILY [facility] Last Admin: 10/06/20 08:05 Dose: 0.8 mg Documented by: Discontinued Medications Sodium Chloride (Normal Saline) 1,000 mls @ 125 mls/hr IV ASDIRECTED [facility] [place] Last Admin: 10/04/20 18:46 Dose: 125 mls/hr Documented by: Potassium Chloride 20 meq/Lidocaine HCl 2 ml/ Sodium Chloride 112 mls @ 56 mls/hr IV Q2H [facility] Stop: 10/05/20 13:59 Last Admin: 10/05/20 13:14 Dose: 56 mls/hr Documented by: - Exam Quality Assessment: DVT Prophylaxis General: Alert, Oriented, Cooperative, Mild Distress Lungs: Clear to Auscultation, Normal Respiratory Effort Cardiovascular: Regular Rate, Regular Rhythm, No Murmurs GI/Abdominal Exam: Soft, Non-Tender, No Organomegaly, No Distention Extremities: Non-Tender, No Pedal Edema - Patient Data Lab Results Last 24 hrs: Laboratory Results - last 24 hr 10/06/20 Range/Units 05:53 Sodium 145 (140-148) mmol/L Potassium 3.9 (3.6-5.2) mmol/L Chloride 104 (100-108) mmol/L Carbon Dioxide 24 (21-32) mmol/L Anion Gap 16.6 H (5.0-14.0) mmol/L BUN 11 (7-18) mg/dL Creatinine 0.7 L (0.8-1.3) mg/dL Est Cr Clr Drug Dosing 97.97 mL/min Estimated GFR (MDRD) > 60 (>60) Glucose 82 (74-106) mg/dL Calcium 8.5 (8.5-10.1) mg/dL Result Diagrams: 10/05/20 05:48 10/06/20 05:53 Sepsis Event Note - Evaluation Sepsis Screening Result: No Definite Risk - Focused Exam Vital Signs: Vital Signs Temp Pulse Pulse Resp BP BP Pulse Ox 10/06/20 08:05 156/78 H 10/06/20 08:04 84 156/78 H 10/06/20 07:00 84 18 156/78 H 96 10/06/20 02:42 97.6 F 83 16 129/73 96 10/06/20 02:29 97.6 F 16 10/05/20 22:42 97.4 F 83 18 148/74 H 94 L - Problem List Review Problem List Initiated/Reviewed/Updated: Yes - My Orders Last 24 Hours: My Active Orders 10/05/20 10:45 Sodium Chloride 0.9% [Normal Saline] 1,000 ml IV ASDIRECTED 10/07/20 05:00 BASIC METABOLIC PANEL,BMP [CHEM] Timed - Plan Plan:: ASSESSMENT AND PLAN SMALL BOWEL OBSTRUCTION-further improvement over the last 24 hours, passing gas and small watery bowel movements. -Follow-up abdominal flatplate and upright x-ray in a.m. -N.p.o. -NG tube to low intermittent suction -IV fluids for hydration -Medication for pain and nausea as needed -Surgical follow-up per Dr. Fernandes HYPERTENSION -Resume antihypertensive medications MAINTENANCE ISSUES -DVT prophylaxis; SCUDs -GI prophylaxis; Protonix 40 mg IV daily -Correa catheter; not indicated -Nutrition; n.p.o. -Nicotine dependence; not required CODE STATUS-FULL CODE ADMISSION STATUS-patient will be admitted to inpatient status, expect at least a 2 night hospital stay for evaluation and management of problems as outlined above. At the time of this admission I do not reasonably expected evaluation and management of this problem will require more than a 96 hour hospital stay. DISPOSITION-anticipate discharge to home after the hospital stay.
[2020-10-06] MEDS: Sodium Chloride 0.9% 1,000 ML IV SCH (13:07)
[2020-10-06] MEDS: Pantoprazole 40 MG Vial IVPUSH SCH (17:58)
[2020-10-06] MEDS: atorvaSTATin 20 MG Tab PO SCH (20:22)
[2020-10-06] MEDS ORDERED: Melatonin 3 MG Tab PO PRN (20:24)
[2020-10-06] MEDS ORDERED: LORazepam 0.5 MG Tab PO PRN (20:25)
[2020-10-07] MEDS: Sodium Chloride 0.9% 1,000 ML IV SCH (02:28)
--- NOTE | 2020-10-07 08:34 | PN ---
DATE OF SERVICE: 10/07/2020 SUBJECTIVE: Evan is feeling better. He has had 1 large bowel movement and 6 smaller ones. He feels like his abdomen is smaller, soft and nontender. Vital signs have been stable. He has been up, ambulating. Oral intake zero. NG put out 200 mL and urine output adequate. REVIEW OF SYSTEMS: Remainder of review of systems negative for any pertinent positives and negatives. OBJECTIVE: GENERAL: Evan Cotton is a pleasant 65-year-old male. He is alert and orientated. VITAL SIGNS: TPR is 96.9, 80, 16. Blood pressure is 122/74. HEENT: Negative. NECK: Supple. HEART: Regular rate and rhythm. LUNGS: Clear. ABDOMEN: Soft, nontender. EXTREMITIES: Without peripheral edema. ASSESSMENT: Small bowel obstruction, resolving. PLAN: 1. Discontinue NG. 2. Clear liquid diet. 3. KCl 60 mEq IV with lidocaine in 3 divided doses for a potassium of 3.2. 4. Check CBC, CMP, mag, and phos. 5. We will evaluate p.r.n. or in a.m. Monika Squires PA-C /[id number]
[2020-10-07] MEDS: amLODIPine 5 MG Tab PO SCH (08:57)
[2020-10-07] MEDS: Hydrochlorothiazide 12.5 MG Cap PO SCH (08:57)
[2020-10-07] MEDS: Tamsulosin 0.4 MG Cap.ER PO SCH (08:57)
[2020-10-07] MEDS: Atenolol 25 MG Tab PO SCH ×2 (08:58→21:35)
--- NOTE | 2020-10-07 08:58 | CR ---
Abdomen 2V AP Flat Upright CLINICAL HISTORY: Small bowel obstruction FINDINGS: There is been further decrease in small bowel distention. Gas and feces in the colon has reduced. No free air is identified. NG tube remains in place. The tip is just beyond the GE junction. There is some density at the right lung base which may represent new pleural effusion or possibly some subsegmental atelectasis IMPRESSION: Decreasing small bowel distention Right basal effusion versus subsegmental atelectasis
[2020-10-07] MEDS: Fluticasone Propionate Nasal Spray 16 GM Bottle NASBOTH SCH (09:00)
[2020-10-07] MEDS: Potassium Chloride 20 MEQ, Lidocaine 1% 2 ML in Sodium Chloride 0.9% 100 ML IV SCH ×3 (09:42→14:38)
[2020-10-07] MEDS: Benzocaine/Cetylpyridinium/Menthol Lozenge MUCMEM PRN (10:53)
--- NOTE | 2020-10-07 13:54 | PCM.PN ---
- General Info Date of Service: 10/07/20 Subjective Update: Mr. Cotton has improved over the last 24 hours, passing gas with a large bowel movement last night. NG tube has been removed this morning and he has been started on a clear liquid diet. Functional Status: Reports: Tolerating Diet, Ambulating, Urinating - Review of Systems General: Reports: No Symptoms Pulmonary: Reports: No Symptoms Cardiovascular: Reports: No Symptoms Gastrointestinal: Reports: No Symptoms Genitourinary: Reports: No Symptoms - Patient Data Vitals - Most Recent: Last Vital Signs Temp 97.6 F 10/07/20 10:44 Pulse 81 10/07/20 10:44 Resp 16 10/07/20 10:44 BP 126/69 10/07/20 10:44 Pulse Ox 97 10/07/20 10:44 Weight - Most Recent: 165 lb 3.2 oz I&O - Last 24 Hours: Intake & Output 10/06/20 10/07/20 10/07/20 22:59 06:59 14:59 Intake Total 950 825 Output Total 50 150 Balance 900 675 Lab Results Last 24 Hours: Laboratory Results - last 24 hr 10/07/20 Range/Units 04:44 Sodium 145 (140-148) mmol/L Potassium 3.2 L (3.6-5.2) mmol/L Chloride 103 (100-108) mmol/L Carbon Dioxide 27 (21-32) mmol/L Anion Gap 18.2 H (5.0-14.0) mmol/L BUN 9 (7-18) mg/dL Creatinine 0.7 L (0.8-1.3) mg/dL Est Cr Clr Drug Dosing 97.97 mL/min Estimated GFR (MDRD) > 60 (>60) Glucose 83 (74-106) mg/dL Calcium 8.4 L (8.5-10.1) mg/dL Med Orders - Current: Current Medications Amlodipine Besylate (Amlodipine 5 Mg Tab) 10 mg PO DAILY [facility] Last Admin: 10/07/20 08:57 Dose: 10 mg Documented by: Atenolol (Atenolol 25 Mg Tab) 50 mg PO BID [facility] Last Admin: 10/07/20 08:58 Dose: 50 mg Documented by: Atorvastatin Calcium (Atorvastatin 20 Mg Tab) 40 mg PO BEDTIME [facility] Last Admin: 10/06/20 20:22 Dose: 40 mg Documented by: Benzocaine/Menthol (Benzocaine/Cetylpyridinium/Menthol Lozenge) 1 lozenge MUCMEM ASDIRECTED PRN PRN Reason: Sore Throat Last Admin: 10/07/20 10:53 Dose: 1 charles Documented by: Fluticasone Propionate (Fluticasone Propionate Nasal [place] 16 Gm Bottle) 0 gm NASBOTH DAILY [facility] Last Admin: 10/07/20 09:00 Dose: 1 spr Documented by: Hydrochlorothiazide (Hydrochlorothiazide 12.5 Mg Cap) 12.5 mg PO DAILY [facility] Last Admin: 10/07/20 08:57 Dose: 12.5 mg Documented by: Hydromorphone HCl (Hydromorphone 0.5 Mg/0.5 Ml Syringe) 0.5 mg IVPUSH Q3H PRN PRN Reason: Pain Last Admin: 10/05/20 20:06 Dose: 0.5 mg Documented by: Potassium Chloride 20 meq/Lidocaine HCl 2 ml/ Sodium Chloride 112 mls @ 56 mls/hr IV Q2H [facility] Stop: 10/07/20 15:29 Last Admin: 10/07/20 12:00 Dose: 56 mls/hr Documented by: Lorazepam (Lorazepam 0.5 Mg Tab) 0.5 mg PO BEDTIME PRN PRN Reason: Other Last Admin: 10/06/20 21:21 Dose: 0.5 mg Documented by: Melatonin (Melatonin 3 Mg Tab) 9 mg PO BEDTIME PRN PRN Reason: Sleep Ondansetron HCl (Ondansetron 4 Mg/2 Ml Sdv) 4 mg IV Q4H PRN PRN Reason: Nausea/Vomiting Last Admin: 10/05/20 20:06 Dose: 4 mg Documented by: Pantoprazole Sodium (Pantoprazole 40 Mg Tab.Cr) 40 mg PO DAILY [facility] Sodium Chloride (Sodium Chloride 0.9% 10 Ml Syringe) 10 ml FLUSH ASDIRECTED PRN PRN Reason: Keep Vein Open Tamsulosin HCl (Tamsulosin 0.4 Mg Cap.Er) 0.8 mg PO DAILY [facility] Last Admin: 10/07/20 08:57 Dose: 0.8 mg Documented by: Discontinued Medications Sodium Chloride (Normal Saline) 1,000 mls @ 125 mls/hr IV ASDIRECTED [facility] Last Admin: 10/04/20 18:46 Dose: 125 mls/hr Documented by: Potassium Chloride 20 meq/Lidocaine HCl 2 ml/ Sodium Chloride 112 mls @ 56 mls/hr IV Q2H [facility] Stop: 10/05/20 13:59 Last Admin: 10/05/20 13:14 Dose: 56 mls/hr Documented by: Sodium Chloride (Normal Saline) 1,000 mls @ 75 mls/hr IV ASDIRECTED [facility] Last Admin: 10/07/20 02:28 Dose: 75 mls/hr Documented by: Pantoprazole Sodium (Pantoprazole 40 Mg Vial) 40 mg IVPUSH Q24H [facility] Last Admin: 10/06/20 17:58 Dose: 40 mg Documented by: - Exam Quality Assessment: DVT Prophylaxis General: Alert, Oriented, Cooperative, No Acute Distress Lungs: Clear to Auscultation, Normal Respiratory Effort Cardiovascular: Regular Rate, Regular Rhythm, No Murmurs GI/Abdominal Exam: Soft, Non-Tender, No Organomegaly, No Distention Extremities: Non-Tender, No Pedal Edema - Patient Data Lab Results Last 24 hrs: Laboratory Results - last 24 hr 10/07/20 Range/Units 04:44 Sodium 145 (140-148) mmol/L Potassium 3.2 L (3.6-5.2) mmol/L Chloride 103 (100-108) mmol/L Carbon Dioxide 27 (21-32) mmol/L Anion Gap 18.2 H (5.0-14.0) mmol/L BUN 9 (7-18) mg/dL Creatinine 0.7 L (0.8-1.3) mg/dL Est Cr Clr Drug Dosing 97.97 mL/min Estimated GFR (MDRD) > 60 (>60) Glucose 83 (74-106) mg/dL Calcium 8.4 L (8.5-10.1) mg/dL Result Diagrams: 10/05/20 05:48 10/07/20 04:44 Sepsis Event Note - Evaluation Sepsis Screening Result: No Definite Risk - Focused Exam Vital Signs: Vital Signs Temp Pulse Pulse Resp BP BP Pulse Ox 10/07/20 10:44 97.6 F 81 16 126/69 97 10/07/20 08:58 86 144/74 H 10/07/20 08:57 144/74 H 10/07/20 07:00 97.4 F 80 144/74 H 96 10/07/20 02:29 96.9 F 80 16 122/74 97 - Problem List Review Problem List Initiated/Reviewed/Updated: Yes - My Orders Last 24 Hours: My Active Orders 10/07/20 13:50 Convert IV to Saline Lock [OM.PC] Routine 10/08/20 09:00 Pantoprazole [ProTONIX] 40 mg PO DAILY - Plan Plan:: ASSESSMENT AND PLAN SMALL BOWEL OBSTRUCTION-further improvement over the last 24 hours, large bowel movement last night, passing gas. NG tube removed this morning and he has been started on a clear liquid diet. -Follow-up abdominal flatplate and upright x-ray in a.m. -Clear liquid diet -Saline lock IV -Medication for pain and nausea as needed -Surgical follow-up per Dr. Fernandes HYPERTENSION -Resume antihypertensive medications MAINTENANCE ISSUES -DVT prophylaxis; SCUDs -GI prophylaxis; Protonix 40 mg IV daily -Correa catheter; not indicated -Nutrition; n.p.o. -Nicotine dependence; not required CODE STATUS-FULL CODE ADMISSION STATUS-patient will be admitted to inpatient status, expect at least a 2 night hospital stay for evaluation and management of problems as outlined above. At the time of this admission I do not reasonably expected evaluation and management of this problem will require more than a 96 hour hospital stay. DISPOSITION-anticipate discharge to home after the hospital stay.
[2020-10-07] MEDS: atorvaSTATin 20 MG Tab PO SCH (21:34)
[2020-10-08] MEDS ORDERED: Acetaminophen 325 MG Tab PO ONE (01:17)
--- NOTE | 2020-10-08 07:08 | CRLCR ---
Indication: Small-bowel obstruction Technique: Three views of the abdomen Comparison: 10/07/2020 Findings/Impression: : The previously seen nasogastric tube has been removed. Dilated gas-filled left upper abdominal and right mid and lower abdominal small bowel segments suggestive of bowel obstruction which could be early or partial. Fold thickening in the dilated small bowel segments is not excluded. Cholecystectomy clips. An ovoid calcification in the lateral left lower abdomen, nonspecific. Several ovoid calcifications projecting over the left ilium could be related to overlying soft tissues. Pelvic phleboliths. Degenerative changes in the spine. Dictated by Jason Robles MD @ 10/08/2020 7:06:38 AM Dictated by: Jason Robles MD @ 10/08/2020 07:06:46 (Electronically Signed)
[2020-10-08] MEDS ORDERED: Pantoprazole 40 MG Tab.CR PO SCH (07:30)
[2020-10-08] MEDS: Tamsulosin 0.4 MG Cap.ER PO SCH (08:40)
[2020-10-08] MEDS: Fluticasone Propionate Nasal Spray 16 GM Bottle NASBOTH SCH (08:40)
[2020-10-08] MEDS: Hydrochlorothiazide 12.5 MG Cap PO SCH (08:41)
[2020-10-08] MEDS: Atenolol 25 MG Tab PO SCH (08:42)
[2020-10-08] MEDS: amLODIPine 5 MG Tab PO SCH (08:42)
[2020-10-08] MEDS: Benzocaine/Cetylpyridinium/Menthol Lozenge MUCMEM PRN (08:47)
[2020-10-08] MEDS ORDERED: Polyethylene Glycol 3350 Powder 17 GM Packet PO SCH (09:00)
[2020-10-08] MEDS ORDERED: Potassium Chloride 20 MEQ Tab.ER PO SCH (09:00)
[2020-10-08 11:09] VITALS: BP 127/70; PULSE 79
--- NOTE | 2020-10-10 07:38 | DISCH ---
ADMISSION DIAGNOSES: 1. Partial small bowel obstruction. 2. Wong esophagus. 3. History of colon polyps. 4. Hypertension. 5. Diverticulitis. DISCHARGE DIAGNOSIS: Resolution of bowel obstruction. HISTORY: Evan Cotton is a 65-year-old male who was admitted for abdominal pain, nausea, vomiting secondary to partial small bowel obstruction. He was treated with NG and was n.p.o. with adequate IV fluids. Daily abdominal flat and upright x-rays were obtained and his bowel obstruction with resting the GI tract improved. On 10/07/2020, his NG was discontinued. He was started on a clear liquid diet. His potassium was low, so he was given some IV potassium. He did start to have bowel movements on 10/06/2020 and continued and has felt better after feeling like his bowel started working again. Tolerated a clear liquid diet. On day of discharge, he was advanced to a full liquid diet. He tolerated that. He will be discharged to home on 10/08/2020 with no complications and following a full liquid diet. Potassium will be supplemented orally. REVIEW OF SYSTEMS: HEENT: Negative. Headache, dizziness. No ear pain. NECK: Negative. CHEST: No chest pain, shortness of breath, fast, irregular heart beat. LUNGS: Denies any cough or shortness of breath. ABDOMEN: Denies pain. Has had frequent bowel movements. In the past 24 hours, he has had 3. EXTREMITIES: Without joint pain or swelling. NEURO: No dizziness, lack of coordination. SKIN: Without rash. PSYCHIATRIC: No insomnia, depression, or anxiety. Remainder of review of systems negative for any pertinent positives and negatives. OBJECTIVE: GENERAL: Evan Cotton is a pleasant 65-year-old male. VITAL SIGNS: Height is 5 feet 6.14 inches, weight is 162 pounds, BMI is 26. TPR is 96.9, 67, 16, blood pressure 146/82. HEENT: Negative. NECK: Supple. HEART: Regular rate and rhythm. LUNGS: Clear. ABDOMEN: Soft, nontender, nondistended. EXTREMITIES: Without peripheral edema. DISPOSITION: Discharged to home. CONDITION: Good, stable, and improving. HOME MEDICATIONS: MiraLAX 17 g p.o. daily, #30, 11 refills; and potassium chloride 40 mEq p.o. daily, #30. He is to resume his home medications of Norvasc 10 mg daily; atenolol 50 mg p.o. b.i.d.; Lipitor daily; Flonase, he takes 1 spray in each nostril daily; hydrochlorothiazide 12.5 mg p.o. daily; Viagra 50 mg p.o. as directed p.r.n.; aspirin 325 mg p.o. daily; Flomax 0.8 mg p.o. daily; Prilosec 40 mg p.o. daily; vitamin D3, 2000 international units daily; Celebrex 100 mg b.i.d. DIET: Full liquid diet until first appointment. Then, the plan is to advance to low-fiber, low-residue diet. APPOINTMENT: With Lamin Fernandes MD for followup on 10/12/2020 at 12 p.m. He is to see Adiel Cantor nurse practitioner, 10/18/2020 at 1 p.m. Diet, as stated, full liquid diet. Drink 8 to 10 glasses of water a day. ACTIVITY: As tolerated. May shower. May drive today. Notify provider if any fever, increased pain, nausea, or vomiting. /[id number]
== END 2020-10-08 12:34 | disposition home or self-care (01) | DRG 247 ==
LOC: JP.MS 17:28
PROVIDERS: ADMIT Hospitalist; ATTEND Hospitalist
DX: K56.600 Partial intestinal obstruction, unspecified as to cause (principal); K57.92 Diverticulitis of intestine, part unspecified, without perforation or abscess without bleeding; K22.70 Barrett's esophagus without dysplasia; I10 Essential (primary) hypertension; K21.9 Gastro-esophageal reflux disease without esophagitis; N40.0 Benign prostatic hyperplasia without lower urinary tract symptoms; Z79.82 Long term (current) use of aspirin; Z79.899 Other long term (current) drug therapy; Z90.49 Acquired absence of other specified parts of digestive tract
CPT/HCPCS: 36415; 71045; 71045-26; 74019; 74019-26; 74021; 74021-26; 80048; 80053; 83735; 84100; 85025; 85027; 99222; 99231; 99232; A9270-GY; C9113; J1170; J2001; J2405; J3480; J7030

== ENCOUNTER 2022-03-08 17:42 | Emergency (ER) | payer BC ==
[2022-03-08] MEDS ORDERED: Sodium Chloride 0.9% 10 ML Syringe FLUSH PRN (18:47)
[2022-03-08 18:52] VITALS: PULSE 91
[2022-03-08] MEDS ORDERED: Sodium Chloride 0.9% 1,000 ML IV SCH (19:00)
[2022-03-08] MEDS ORDERED: Sodium Chloride 0.9% 75 ML IV SCH (19:15)
[2022-03-08] MEDS ORDERED: Iopamidol 612 MG/ML 100 ML Bottle IV SCH (19:15)
[2022-03-08 19:37] VITALS: BP 138/86
[2022-03-08] MEDS ORDERED: fentaNYL 100 MCG/2 ML SDV IVPUSH ONE ×2 (20:42→21:00)
[2022-03-08] MEDS ORDERED: fentaNYL 50 MCG/ML SDV ONE (21:06)
[2022-03-08] MEDS ORDERED: Ondansetron 4 MG/2 ML SDV IVPUSH ONE (21:33)
[2022-03-08] MEDS ORDERED: Ondansetron 4 MG/2 ML SDV ONE (21:48)
== END 2022-03-08 22:30 ==
LOC: JP.ED 17:42
DX: K56.609 Unspecified intestinal obstruction, unspecified as to partial versus complete obstruction (principal); I10 Essential (primary) hypertension; K21.9 Gastro-esophageal reflux disease without esophagitis; Z86.16 Personal history of COVID-19; Z79.82 Long term (current) use of aspirin; Z79.899 Other long term (current) drug therapy
CPT/HCPCS: 36415; 43752; 74018; 74177; 82565; 96361; 96374; 99284; 99285; J2405; J3010; J3490; J7030; Q9967

== ENCOUNTER 2022-06-19 15:34 | Inpatient (IN) | payer BC ==
[2022-06-19] MEDS ORDERED: Ondansetron 4 MG/2 ML SDV IVPUSH ONE (16:40)
[2022-06-19] MEDS ORDERED: Sodium Chloride 0.9% 1,000 ML IV SCH ×2 (16:45→18:30)
[2022-06-19] MEDS ORDERED: HYDROmorphone 0.5 MG/0.5 ML Syringe IVPUSH ONE (17:05)
[2022-06-19 17:23] LABS: ESTIMATED GFR 67 mL/min (>60)
[2022-06-19] MEDS ORDERED: Sodium Chloride 0.9% 10 ML Syringe FLUSH ONE (17:54)
[2022-06-19] MEDS ORDERED: Iopamidol 612 MG/ML 100 ML Bottle IV ONE (17:54)
[2022-06-19] MEDS ORDERED: Sodium Chloride 0.9% 50 ML IV ONE (17:54)
[2022-06-19] MEDS ORDERED: Albuterol 0.083% 2.5 MG/3 ML Neb Soln NEB PRN (20:03)
[2022-06-19] MEDS ORDERED: LORazepam 2 MG/ML SDV IV PRN (20:03)
[2022-06-19] MEDS ORDERED: diphenhydrAMINE 50 MG/ML SDV IVPUSH PRN (20:03)
[2022-06-19] MEDS ORDERED: Albuterol/Ipratropium 3.0-0.5 MG/3 ML Neb Soln NEB PRN (20:03)
[2022-06-19] MEDS ORDERED: Lactated Ringers 1,000 ML IV ONE (20:03)
[2022-06-19] MEDS ORDERED: Pantoprazole 40 MG Vial IV SCH (20:03)
[2022-06-19] MEDS ORDERED: Naloxone 0.4 MG/ML SDV IVPUSH PRN (20:03)
[2022-06-19] MEDS: HYDROmorphone/Normal Saline 6 MG/30 ML PCA Vial IV PRN (20:31)
[2022-06-19] MEDS: Atenolol 25 MG Tab PO SCH (20:53)
[2022-06-19] MEDS: Lactated Ringers 1,000 ML IV SCH (21:29)
[2022-06-20] MEDS ORDERED: Potassium Chloride 10 MEQ in Premix Bag 1 BAG IV ONE (05:23)
[2022-06-20] MEDS: Lactated Ringers 1,000 ML IV SCH ×3 (05:35→23:07)
[2022-06-20] MEDS: Ondansetron 4 MG/2 ML SDV IV PRN ×2 (08:04→12:51)
[2022-06-20] MEDS: amLODIPine 5 MG Tab PO SCH (10:16)
[2022-06-20] MEDS: Hydrochlorothiazide 12.5 MG Cap PO SCH (10:16)
[2022-06-20] MEDS: Atenolol 25 MG Tab PO SCH ×2 (10:17→20:13)
[2022-06-20] MEDS: Potassium Phosphates 20 MMOLE in Sodium Chloride 0.9% 250 ML IV SCH ×2 (10:20→15:17)
[2022-06-20] MEDS ORDERED: Pantoprazole 40 MG Vial IV SCH (20:00)
[2022-06-21 05:22] LABS: ESTIMATED GFR 102 mL/min (>60)
[2022-06-21] MEDS ORDERED: Meropenem 500 MG SDV ONE (06:39)
[2022-06-21] MEDS ORDERED: Bupivacaine 0.5% 30 ML SDV ONE (06:39)
[2022-06-21] MEDS ORDERED: Lidocaine 1% with EPINEPHrine 1:100,000 50 ML MDV ONE (06:40)
[2022-06-21] MEDS: Lactated Ringers 1,000 ML IV SCH (07:10)
[2022-06-21] MEDS ORDERED: Rocuronium 50 MG/5 ML Vial ONE (07:12)
[2022-06-21] MEDS ORDERED: fentaNYL 250 MCG/5 ML SDV ONE (07:12)
[2022-06-21] MEDS ORDERED: Neostigmine Methylsulfate 1 MG/ML 5 ML Syringe ONE (07:12)
[2022-06-21] MEDS ORDERED: Glycopyrrolate 0.2 MG/ML 5 ML MDV ONE (07:12)
[2022-06-21] MEDS ORDERED: Dexamethasone 4 MG/ML SDV ONE (07:12)
[2022-06-21] MEDS ORDERED: Propofol 200 MG/20 ML SDV ONE (07:12)
[2022-06-21] MEDS ORDERED: Ondansetron 4 MG/2 ML SDV ONE (07:12)
[2022-06-21] MEDS ORDERED: Succinylcholine 200 MG/10 ML MDV ONE (07:12)
[2022-06-21] MEDS ORDERED: Ketamine 18 MG in Sodium Chloride 0.9% 19.82 ML IV SCH (07:15)
[2022-06-21] MEDS ORDERED: Ketamine 500 MG/5 ML MDV IV SCH ×3 (07:15)
[2022-06-21] MEDS ORDERED: cefOXitin 2 GM in Sodium Chloride 0.9% 50 ML IV ONE (07:15)
[2022-06-21] MEDS ORDERED: Ropivacaine 38 ML, dexAMETHasone 8 MG, EPINEPHrine 0.4 MG, Sodium Chloride 0.9% 39.6 ML NERVRT SCH ×4 (07:15)
[2022-06-21] MEDS: Dextrose 5%-Lactated Ringers 1,000 ML IV SCH ×2 (09:50→21:51)
[2022-06-21] MEDS ORDERED: Cyclobenzaprine 10 MG Tab PO PRN (10:22)
[2022-06-21] MEDS: amLODIPine 5 MG Tab PO SCH (10:38)
[2022-06-21] MEDS: Hydrochlorothiazide 12.5 MG Cap PO SCH (10:38)
[2022-06-21] MEDS: Atenolol 25 MG Tab PO SCH ×2 (10:39→20:13)
[2022-06-21] MEDS ORDERED: diphenhydrAMINE 50 MG/ML SDV IVPUSH PRN (11:00)
[2022-06-21] MEDS ORDERED: Ondansetron 4 MG/2 ML SDV IVPUSH PRN (11:00)
[2022-06-21] MEDS ORDERED: Metoclopramide 10 MG/2 ML SDV IVPUSH PRN (11:00)
[2022-06-21] MEDS ORDERED: Acetaminophen 500 MG Tab PO PRN (11:00)
[2022-06-21] MEDS ORDERED: Labetalol 20 MG/4 ML Syringe IVPUSH PRN (11:00)
[2022-06-21] MEDS ORDERED: hydrOXYzine HCL 100 MG/2 ML SDV IM PRN (11:00)
[2022-06-21] MEDS: HYDROmorphone/Normal Saline 6 MG/30 ML PCA Vial IV PRN (11:27)
[2022-06-21] MEDS: cefOXitin 2 GM in Sodium Chloride 0.9% 50 ML IV SCH ×2 (13:30→20:18)
[2022-06-21] MEDS: Acetaminophen 500 MG Tab PO SCH ×2 (14:02→21:52)
[2022-06-21] MEDS: Heparin Sodium 5,000 Units/ML Vial SUBCUT SCH (15:26)
[2022-06-21] MEDS ORDERED: MVI, Adult with Vitamin K 10 ML, Thiamine 200 MG, Zinc/Copper/Manganese/Selenium 1 ML i... IV SCH ×4 (16:00)
[2022-06-21] MEDS ORDERED: Pantoprazole 40 MG Vial IVPUSH SCH (20:00)
[2022-06-21] MEDS: Tamsulosin 0.4 MG Cap.ER PO SCH (20:13)
[2022-06-21] MEDS: atorvaSTATin 20 MG Tab PO SCH (20:14)
[2022-06-22] MEDS: cefOXitin 2 GM in Sodium Chloride 0.9% 50 ML IV SCH ×3 (02:24→13:59)
[2022-06-22] MEDS: HYDROmorphone/Normal Saline 6 MG/30 ML PCA Vial IV PRN (04:41)
[2022-06-22] MEDS: Acetaminophen 500 MG Tab PO SCH ×3 (04:59→23:03)
[2022-06-22] MEDS: Heparin Sodium 5,000 Units/ML Vial SUBCUT SCH ×2 (05:01→16:33)
[2022-06-22 05:04] LABS: ESTIMATED GFR 98 mL/min (>60)
[2022-06-22] MEDS ORDERED: Dextrose 5%-Lactated Ringers 1,000 ML IV SCH (07:35)
[2022-06-22] MEDS: Celecoxib 200 MG Cap PO SCH ×2 (08:37→20:35)
[2022-06-22] MEDS: Losartan 50 MG Tab PO SCH (08:38)
[2022-06-22] MEDS: Docusate Sodium 100 MG Cap PO SCH ×2 (08:38→20:36)
[2022-06-22] MEDS: Aspirin 325 MG Tab.EC PO SCH (08:40)
[2022-06-22] MEDS: Bisacodyl 5 MG Tab PO SCH ×2 (08:40→20:36)
[2022-06-22] MEDS: Fluticasone NASAL Spray 16 GM Bottle NASBOTH SCH (08:41)
[2022-06-22] MEDS: Hydrochlorothiazide 12.5 MG Cap PO SCH (08:42)
[2022-06-22] MEDS: amLODIPine 5 MG Tab PO SCH (08:43)
[2022-06-22] MEDS: Atenolol 25 MG Tab PO SCH ×2 (08:43→20:38)
[2022-06-22] MEDS: SCOPOLAMINE PATCH CHECK TOP SCH (08:50)
[2022-06-22] MEDS ORDERED: MVI, Adult with Vitamin K 10 ML, Thiamine 200 MG, Zinc/Copper/Manganese/Selenium 1 ML i... IV SCH ×4 (16:00)
[2022-06-22] MEDS ORDERED: HYDROmorphone 2 MG Tab PO PRN (18:32)
[2022-06-22] MEDS ORDERED: Ondansetron 4 MG Tab.DIS PO PRN (18:38)
[2022-06-22] MEDS: Tamsulosin 0.4 MG Cap.ER PO SCH (20:36)
[2022-06-22] MEDS: atorvaSTATin 20 MG Tab PO SCH (20:36)
[2022-06-22] MEDS ORDERED: Pantoprazole 40 MG Tab.CR PO SCH (21:00)
[2022-06-23] MEDS: Acetaminophen 500 MG Tab PO SCH (05:06)
[2022-06-23] MEDS: Heparin Sodium 5,000 Units/ML Vial SUBCUT SCH (05:07)
[2022-06-23 08:00] VITALS: BP 172/84
[2022-06-23] MEDS: Losartan 50 MG Tab PO SCH (08:08)
[2022-06-23] MEDS: Fluticasone NASAL Spray 16 GM Bottle NASBOTH SCH (08:08)
[2022-06-23] MEDS: Hydrochlorothiazide 12.5 MG Cap PO SCH (08:09)
[2022-06-23] MEDS: Docusate Sodium 100 MG Cap PO SCH (08:09)
[2022-06-23] MEDS: Bisacodyl 5 MG Tab PO SCH (08:09)
[2022-06-23] MEDS: Atenolol 25 MG Tab PO SCH (08:10)
[2022-06-23] MEDS: Celecoxib 200 MG Cap PO SCH (08:11)
[2022-06-23] MEDS: Aspirin 325 MG Tab.EC PO SCH (08:11)
[2022-06-23] MEDS: amLODIPine 5 MG Tab PO SCH (08:11)
[2022-06-23] MEDS: SCOPOLAMINE PATCH CHECK TOP SCH (08:12)
[2022-06-23 08:13] VITALS: PULSE 84
[2022-06-23] MEDS ORDERED: Bisacodyl 10 MG Supp RECTAL SCH (09:00)
== END 2022-06-23 11:50 | disposition home or self-care (01) | DRG 227 ==
LOC: JP.ED 15:34 → JP.MS 18:59
PROVIDERS: ADMIT Internal Medicine; ATTEND Surgery
PROC: 0DN80ZZ Release Small Intestine, Open Approach (ICD-10-PCS; principal; 2022-06-21)
PROC: 0WQF0ZZ Repair Abdominal Wall, Open Approach (ICD-10-PCS; principal; 2022-06-21)
PROC: 3E0M05Z Introduction of Adhesion Barrier into Peritoneal Cavity, Open Approach (ICD-10-PCS; principal; 2022-06-21)
PROC: 0D9670Z Drainage of Stomach with Drainage Device, Via Natural or Artificial Opening (ICD-10-PCS; principal; 2022-06-21)
DX: K56.51 Intestinal adhesions [bands], with partial obstruction (principal); K43.0 Incisional hernia with obstruction, without gangrene; I10 Essential (primary) hypertension; K21.9 Gastro-esophageal reflux disease without esophagitis; N40.0 Benign prostatic hyperplasia without lower urinary tract symptoms; K22.70 Barrett's esophagus without dysplasia; E87.6 Hypokalemia; Z79.82 Long term (current) use of aspirin; Z79.899 Other long term (current) drug therapy; Z86.19 Personal history of other infectious and parasitic diseases; Z90.49 Acquired absence of other specified parts of digestive tract; Z98.890 Other specified postprocedural states
CPT/HCPCS: 36415; 74019; 74019-26; 74177; 80048; 80053; 81001; 83605; 83690; 83735; 83880; 84100; 84132; 85025; 85027; 86140; 87040; 88302; 96361; 96374; 96375; 99285-25; A9270-GY; C9113; J0171; J0330; J0694; J1100; J1170; J1644; J2020; J2060; J2185; J2405; J2704; J2710; J2795; J3010; J3411; J3480; J3490; J7030; J7050; J7120; J7121; Q9967; U0002